=== PATIENT | male | born 1960 | race Hispanic/Latino ===

== ENCOUNTER 2017-01-30 09:57 | Day surgery (SDC) | payer BC, OTHER ==
[~2017-01-30 09:57] MED LIST: RINGERS SOLUTION,LACTATED 1,000 ML IV PRN
[2017-01-30] MEDS: RINGERS SOLUTION,LACTATED 1,000 ML IV ONE ×2 (10:20→11:40)
--- NOTE | 2017-01-30 12:31 | OR ---
Operative Report - Dictated Report Narrative: Date: 01/30/2017 PREOP: Screening for colon CA POSTOP: Thrombosed external hemorrhoid, left posterior column without complication. Severe diverticulosis. Polyp at 105 cm proximal transverse, technically unable to biopsy. 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 Inspection reveals an external hemorrhoid thrombosis left posterior column without ulceration or bleeding. A flexible fiberoptic video colonoscope was introduced and advanced under direct vision without difficulty to the cecum. The usual landmarks were identified. Preparation was excellent and excellent views were obtained. The findings were of numerous diverticuli of the transverse, descending and sigmoid colon. Otherwise the cecum, ascending colon, and hepatic flexure were normal. A sessile polyp was noted at 105cm in the proximal transverse colon. It was located behind a haustra and numerous attempts to angle the scope into position for a biopsy were unsuccessful. The remainder of the transverse, descending, and sigmoid colon were normal except as noted above. The rectum was normal. The mucosal color, vasculature and texture were normal throughout. No suspicious masses were seen. The patient tolerated the procedure well without apparent complications and was discharged from the endoscopy suite in stable condition.
[2017-01-30 13:31] VITALS: BP 114/70
== END 2017-01-30 09:58 | disposition home or self-care (01) ==
LOC: AMB 09:57
PROVIDERS: ATTEND Specialist
PROC: 0DJD8ZZ Inspection of Lower Intestinal Tract, Via Natural or Artificial Opening Endoscopic (ICD-10-PCS; principal; 2017-01-30 11:15)
DX: Z12.11 Encounter for screening for malignant neoplasm of colon (principal); D12.3 Benign neoplasm of transverse colon; K57.30 Diverticulosis of large intestine without perforation or abscess without bleeding; K64.5 Perianal venous thrombosis; E11.9 Type 2 diabetes mellitus without complications; I10 Essential (primary) hypertension; E78.5 Hyperlipidemia, unspecified; I25.10 Atherosclerotic heart disease of native coronary artery without angina pectoris; J45.909 Unspecified asthma, uncomplicated; E66.9 Obesity, unspecified; Z68.35 Body mass index [BMI] 35.0-35.9, adult; Z87.891 Personal history of nicotine dependence

== ENCOUNTER 2017-03-11 08:53 | Day surgery (SDC) | payer BC, OTHER ==
[2017-03-11] MEDS ORDERED: RINGERS SOLUTION,LACTATED 1,000 ML IV ONE (09:19)
[2017-03-11] MEDS ORDERED: RINGERS SOLUTION,LACTATED 1,000 ML IV PRN (10:26)
[2017-03-11 11:45] VITALS: BP 118/73
--- NOTE | 2017-03-11 13:29 | OR ---
Operative Report - Dictated Report Narrative: OPERATIVE REPORT DATE OF OPERATION: 03/11/2017 PREOPERATIVE DIAGNOSIS: Colon polyp POSTOPERATIVE DIAGNOSIS: 4 mm area of possible polypoid change at the hepatic flexure (pathology pending). Severe diverticulosis OPERATION: Colonoscopy with hot biopsy forceps polypectomy at the hepatic flexure SURGEON: Marvin Hoover MD ANESTHESIA: JULIA Pearce CRNA INDICATIONS FOR PROCEDURE: The patient is a 56-year-old male who underwent colonoscopy on 01/30/2017 with a finding of a polyp at the hepatic flexure which could not be addressed. He is brought for repeat exam FINDINGS: 4 mm area of possible polypoid change at the hepatic flexure, biopsied and destroyed with electrocautery (pathology pending). Severe diverticulosis to the level of the transverse colon NARRATIVE OF PROCEDURE: The patient was identified in the holding area, and prior to the administration of anesthetic, a multidisciplinary timeout was observed. With the patient in the left lateral position and after the administration of intravenous sedation, the perineum was inspected. There was no evidence of pilonidal disease or skin breakdown. The external appearance of the anus was normal. Sphincter tone was good. The flexible fiberoptic colonoscope was inserted into the rectum which was insufflated with air. The rectal mucosa and submucosal vascular pattern appeared normal, the prep was seen to be complete. The scope was advanced through the sigmoid colon, which contained numerous large noninflamed diverticular openings, at least one of which was impacted with stool. The scope was advanced up the descending colon, and around the splenic flexure where the triangular haustral architecture of the transverse colon was seen. The scope was advanced across the transverse colon to the hepatic flexure. The scope was maneuvered around the hepatic flexure to the cecum, where the confluence of tenia and the ileocecal valve were identified. The mucosa at this level appeared normal. The scope was then slowly withdrawn up the ascending colon which appeared normal. At the hepatic flexure a 4 mm area of possible polypoid change was encountered. The appearance was that of hyperplastic/inflamed polyp rather than an adenomatous polyp. This was biopsied and thoroughly destroyed with electrocautery. The site was seen to be complete and hemostatic. The scope was then slowly withdrawn in a circular fashion so that all aspects of colonic mucosa were inspected. The colon was slightly capacious in character and redundant in course. The haustral architecture appeared well preserved throughout with no evidence of external compression. The mucosa and submucosal vascular pattern appeared normal, specifically there was no gross evidence to suggest colitis or inflammatory bowel disease and no AV malformations were seen. There was severe diverticulosis involving the colon from the proximal transverse to the sigmoid. No additional polyps were encountered. The scope was gradually withdrawn to the level of the rectum. As much insufflated air as possible was removed. The scope was withdrawn from the patient and the procedure terminated. The patient tolerated the anesthetic and procedure well without complication and was transferred back to the ambulatory surgery area awake and in stable condition. The patient remained stable throughout a period of postoperative observation. He denied abdominal discomfort, was able to tolerate by mouth intake, and was up without assistance. I shared the operative findings with the patient and he was given copies of the photographs which appear in the medical record. He was discharged home with instructions not to engage in hazardous activity today, but may resume normal activity tomorrow, and advance diet as tolerated. He is to continue those medications as listed in the history and physical exam. I made arrangements to contact him with the biopsy reports and will make additional recommendations for treatment and follow-up based upon those results. Reviewed and electronically signed
== END 2017-03-11 08:54 | disposition home or self-care (01) ==
LOC: AMB 08:53
PROVIDERS: ATTEND Surgery
PROC: 0DBE8ZX Excision of Large Intestine, Via Natural or Artificial Opening Endoscopic, Diagnostic (ICD-10-PCS; principal; 2017-03-11 10:00)
DX: Z12.11 Encounter for screening for malignant neoplasm of colon (principal); K63.5 Polyp of colon; K57.30 Diverticulosis of large intestine without perforation or abscess without bleeding; E11.9 Type 2 diabetes mellitus without complications; I10 Essential (primary) hypertension; E78.5 Hyperlipidemia, unspecified; I25.10 Atherosclerotic heart disease of native coronary artery without angina pectoris; J45.909 Unspecified asthma, uncomplicated; E66.9 Obesity, unspecified; Z68.35 Body mass index [BMI] 35.0-35.9, adult; Z87.891 Personal history of nicotine dependence

== ENCOUNTER 2017-03-22 15:39 | Emergency (ER) | payer BC, OTHER ==
[2017-03-22 16:01] LABS: Hematocrit 39.6 % (42.0-52.0); Hemoglobin 13.7 gm/dL (13.5-18.0); Mean Cell Volume 88.6 fl (78-100); Mean Corpuscular Hemoglobin 30.6 pg (27-31); Mean Corpuscular Hgb Conc 34.6 g/dl (32-36); Mean Platelet Volume 10.8 fl (6.0-9.5); Neutrophil # 7.3 K/mm3 (1.3-6.0); Neutrophil % 63.6 % (42-75.0); Platelet Count 234 K/mm3 (150-450); Red Blood Count 4.47 M/mm3 (4.7-6.0); Red Cell Distribution Width 13.6 % (11.5-14.0); White Blood Count 11.4 K/mm3 (4.0-10.5)
[2017-03-22 16:13] LABS: Prothrombin Time (Patient) 9.9 Seconds (9.4-11.4)
[2017-03-22 16:14] LABS: INR 0.95 INR (0.90-1.10); Partial Thrombolplastin Time 27.2 Seconds (24-32)
[2017-03-22 16:20] LABS: Albumin * 3.9 gm/dl (3.4-5.0); Anion Gap 18.6 mmol/L (6.8-13.8); Bilirubin, Total 0.3 mg/dL (0.0-1.1); Ca. Corrected For Albumin 8.3 mg/dL (8.4-10.2); Calcium * 8.5 mg/dL (7.9-10.9); Carbon Dioxide 22.4 mmol/L (24-32.6); Total Protein 7.6 gm/dL (6.2-8.2)
[2017-03-22 16:21] LABS: Troponin I 0.018 ng/ml (0.00-0.10)
[2017-03-22] MEDS ORDERED: ASPIRIN 81 MG TAB.CHEW PO ONE (16:21)
[2017-03-22] MEDS ORDERED: LISINOPRIL 10 MG TABLET PO ONE (16:21)
[2017-03-22] MEDS ORDERED: ALPRAZolam 0.25 MG TABLET PO ONE (16:23)
[2017-03-22] MEDS ORDERED: ALPRAZolam 0.25 MG TABLET ONE (16:25)
[2017-03-22] MEDS ORDERED: LISINOPRIL 10 MG TABLET ONE (16:26)
[2017-03-22] MEDS ORDERED: ASPIRIN 81 MG TAB.CHEW ONE (16:26)
--- NOTE | 2017-03-22 16:29 | ERNOTE ---
Chest Pain/Cardiac HPI Chief Complaint: Chest Pain Time Seen by Provider: 03/22/17 16:11 Source: patient Exam Limitations: no limitations Immunizations: IMMUNIZATION HX Immunizations Up to Date Yes History of Influenza Vaccine Yes Hx Pneumococcal Vaccination No Allergies/Adverse Reactions: Allergies No Known Allergies Allergy (Verified 03/22/17 15:50) Home Medications: HOME MEDICATIONS Albuterol Sulfate [Ventolin HFA] 2 puff IH Q4H PRN 02/25/16 [Last Taken Unknown] Atorvastatin Calcium 10 mg PO HS 02/25/16 [Last Taken Unknown] Glimepiride 4 mg PO DAILY 02/25/16 [Last Taken Unknown] Lisinopril [Zestril] 40 mg PO DAILY 02/25/16 [Last Taken Unknown] Nabumetone [Relafen] 500 mg PO BID 02/25/16 [Last Taken Unknown] Tamsulosin HCl [Flomax] 0.4 mg PO DAILY 02/25/16 [Last Taken Unknown] clonazePAM [Klonopin] 0.5 - 1 mg PO DAILY PRN 02/25/16 [Last Taken Unknown] metFORMIN HCL [Glucophage] 1,000 mg PO BIDWM 02/25/16 [Last Taken Unknown] traMADol HCL [Ultram] 50 mg PO Q6H PRN 02/25/16 [Last Taken Unknown] Aspirin [Aspirin EC] 325 mg PO DAILY 01/26/17 [Last Taken 03/04/17] Clopidogrel Bisulfate [Plavix] 75 mg PO DAILY 01/26/17 [Last Taken 03/04/17] FLUoxetine HCL [Prozac] 80 mg PO DAILY 01/26/17 [Last Taken Unknown] Furosemide [Lasix] 40 mg PO DAILY 01/26/17 [Last Taken Unknown] Hydrocortisone Acetate 1 supp RC BID PRN 01/26/17 [Last Taken Unknown] Hydrocortisone [Hydrocortisone 2.5% Cream] 1 appl TP BID 01/26/17 [Last Taken Unknown] Omeprazole 40 mg PO DAILY 01/26/17 [Last Taken Unknown] Narrative: Patient is here for substernal chest pain that started today around 10:00 while resting, it reminds him of the pain prior to having a cardiac stent placed a year and a half ago.He also admit that he fell down three cements stairs yesterday afternoon. he landed on his right side, denies any head injury or passing out, states that he did not really have pain after that, but then says that he was laying around all day today as he was sore. He did not take any of his medications today yet ( specifically asked about asa , HTN and anxiety meds) Timing: constant Severity/Quality: moderate, aching Location: central Chest Pain Radiation: no radiation Activities at Onset: none Modifying Factors - Worsens: Present: breathing, movement, other - siting up Nitro Today/Relief: no nitro taken today Aspirin Treatment Today: no aspirin today Associated Symptoms: Present: dizziness, shortness of breath Prior Chest Pain/Cardiac Workup: Reports: prior chest pain, cardiac cath Review of Systems - Review of Systems Constitutional: Absent: recent illness, fever EYE: Absent: vision changes ENT: Absent: nose pain, sore throat Respiratory: Present: See HPI, shortness of breath. Absent: cough Cardiology: Present: See HPI, chest pain Gastrointestinal/Abdominal: Absent: nausea, vomiting, abdominal pain Genitourinary: Present: no symptoms reported Skin: Present: See HPI, other - brusing in right shoulder and chest - Patient's Past Medical History Patient History - Medical: Diabetes Type 2, Other Patient History - Cardiac/Respiratory: Asthma, Coronary Heart Disease, Hypertension, Hyperlipidemia Patient History - Cancer: No Hx of Cancer Patient History - Surgical Procedures: Colonoscopy, Cardiac stent, Other Patient History - Other: None - Family History Brother Family History - Medical: Diabetes Type 2, Other Family History - Cardiac/Respiratory: No pertinent hx Family History - Cancer: No pertinent family hx Father Family History - Medical: , Diabetes Type 2 Family History - Cardiac/Respiratory: No pertinent hx Family History - Cancer: Bone Grandmother-Maternal Family History - Medical: , Diabetes Type 2 Family History - Cardiac/Respiratory: No pertinent hx Family History - Cancer: No pertinent family hx Mother Family History - Medical: , Diabetes Type 2 Family History - Cardiac/Respiratory: Other Family History - Cancer: No pertinent family hx Sister Family History - Medical: Diabetes Type 2, Other Family History - Cardiac/Respiratory: No pertinent hx Family History - Cancer: No pertinent family hx - Social History Living Situations: home Abuse History: No History of abuse Psych History: Hx of Anxiety, Hx of Depression, Current tx/ever been on anti- depressants or anti-anxiety meds Smoking Status: Former smoker Alcohol Use: none Drug Use: other - Immunizations Immunizations Up to Date: Yes Hx Pneumococcal Vaccination: No History of Influenza Vaccine: Yes Physical Exam - Physical Exam General Appearance: Present: wd/wn, alert, mild distress, anxious - !! Head Exam: Present: normal inspection, no evidence of injury Ears, Nose, Throat: Present: normal ENT inspection Neck: Present: normal inspection, nontender Respiratory: Present: no respiratory distress, lungs clear, chest tenderness - skin contusion around right nipple area, slightly tender, no other chest tenderness Cardiovascular/Chest: Present: regular rate, rhythm, no murmur Gastrointestinal/Abdominal: Present: normal bowel sounds, nontender, nondistended, soft Extremity Exam: Present: normal except - - contusion on right lateral shoulder, mildly tender. Absent: decreased range of motion Neurological Exam: Present: alert, oriented, normal mood/affect Skin Exam: Present: normal color, warm/dry ED Progress - Results and Orders Patient's Lab Results:: I have reviewed the patient's lab results. - Vital Signs Patient's Vital Signs:: I have reviewed the patient's vital signs. Vital Signs: Vital Signs 03/22/17 03/22/17 03/22/17 15:46 15:50 15:52 Temperature 36.4 C L Pulse Rate 101 H 102 H 98 Respiratory 13 12 Rate Blood Pressure 169/95 155/89 O2 Sat by Pulse 95 98 Oximetry 03/22/17 03/22/17 15:58 16:19 Temperature Pulse Rate 97 106 H Respiratory 17 20 Rate Blood Pressure 155/89 173/107 O2 Sat by Pulse 98 96 Oximetry - EKG EKG: NSR - sinus tachycardia, other - no acute changes EKG read: Interp. by me - X-Ray X-Ray #1 X-Ray: chest - no acute changes Interpretation: Reviewed by me - CT/Ultrasound CT/Ultrasound Narrative: CT chest; no PE, no significant trauma - Progress/Reassessment Chief Complaint: Chest Pain Progress Note-Subjective: 03/22/17 16:40 feeling slightly better, discussed results 03/22/17 17:51 patient is feeling much better, no chest pain, seems relaxed after alprazolam , less anxious, blood pressure normal after lisinopril, explained results and limits of test to rule out acute CAD, with recent fall chest wall pain more likely Departure - Departure Clinical Impression: Chest pain Qualifiers: Chest pain type: chest pain on breathing Qualified Code(s): R07.1 - Chest pain on breathing Disposition: Home self-care Condition: Good Instructions: Chest Pain Observation Additional Instructions: take all your medications as prescribed take tylenol as needed for pain call your doctor or return to the ER for any new or persistent chest pain Referrals: Thomas Cramer DO [Primary Care Provider] -
[2017-03-22] MEDS ORDERED: NORMAL SALINE 1,000 ML IV PRN (16:37)
[2017-03-22 18:05] VITALS: BP 135/82
== END 2017-03-22 18:04 | disposition home or self-care (01) ==
LOC: ER 15:39
DX: R07.1 Chest pain on breathing (principal)